=== PATIENT | male | born 1965 | race Caucasian/White ===

== ENCOUNTER 2020-07-03 02:45 | Observation (INO) | payer SELFPAY ==
[2020-07-03] VITALS (16 sets, daily range): BP systolic 108–146; BP diastolic 67–99; PULSE 60–114; RESP 17–18; TEMP 36.7–36.9; O2SAT 93–98; BMI 27.6
[2020-07-03 03:13] LABS: Basophils # 0.1 10^3/uL (0.0-0.1); Basophils % 0.4 %; Eosinophils # 0.3 10^3/uL (0.0-0.8); Eosinophils % 2.1 %; Hematocrit 43.8 % (42.0-52.0); Hemoglobin 14.7 g/dL (11.7-16.6); Lymphocytes # 2.2 10^3/uL (0.8-4.8); Lymphocytes % 18.5 %; Mean Corpuscular HGB Conc 33.6 g/dL (30.0-36.0); Mean Corpuscular Hemoglobin 29.3 pg (28.0-34.0); Mean Corpuscular Volume 87.3 fL (80-94); Mean Platelet Volume 10.6 fL (7.4-10.4); Monocytes # 0.8 10^3/uL (0.2-0.9); Monocytes % 6.5 %; Neutrophils # 8.54 10^3/uL (1.8-7.7); Neutrophils % 71.7 %; Nucleated Red Blood Cells % 0 %; Platelet Count 340 10^3/cmm (130-400); Red Blood Count 5.02 10^6/uL (4.1-5.3); Red Cell Distribution Width 12.5 % (12.1-15.1); White Blood Count 11.9 10^3/uL (4.0-10.0)
--- NOTE | 2020-07-03 03:16 | CTR_ITS ---
PROCEDURE INFORMATION: Exam: CT Abdomen And Pelvis With Contrast Exam date and time: 07/03/2020 3:20 AM Age: 54 years old Clinical indication: Abdominal pain; Prior surgery; Surgery type: Hernia; Patient HX: Epigastric pain TECHNIQUE: Imaging protocol: Computed tomography of the abdomen and pelvis with contrast. Radiation optimization: All CT scans at this facility use at least one of these dose optimization techniques: automated exposure control; mA and/or kV adjustment per patient size (includes targeted exams where dose is matched to clinical indication); or iterative reconstruction. Contrast material: OMNI 300; Contrast volume: 95 ml; Contrast route: INTRAVENOUS (IV); COMPARISON: No relevant prior studies available. RADIATION DOSE METRICS: Total DLP (mGy-cm): 1693.31 FINDINGS: Liver: Indeterminate 15 mm and 11mm lesions in the right hepatic lobe on axial images 13 and 35, respectively. Gallbladder and bile ducts: Radiolucent stones noted in the gallbladder hyperdense material layering probably representing sludge. There is mild wall thickening/pericholecystic fluid. Pancreas: No ductal dilation. Spleen: No splenomegaly. Adrenal glands: Normal. No mass. Kidneys and ureters: No hydronephrosis. Stomach and bowel: Colonic diverticulosis without findings of diverticulitis. No bowel obstruction. Appendix: No evidence of appendicitis. Intraperitoneal space: No free air. No significant fluid collection. Vasculature: No abdominal aortic aneurysm. Lymph nodes: No enlarged lymph nodes. Urinary bladder: Unremarkable as visualized. Reproductive: Unremarkable as visualized. Bones/joints: Chronic right rib fracture. No acute fracture. Soft tissues: Previous left inguinal hernia repair. CT/CT abdomen pelvis w con* [id number] IMPRESSION: 1. Findings suggestive of acute cholecystitis in the appropriate clinical context. 2. Indeterminate 15 mm and 11mm lesions in the right hepatic lobe. Further evaluation with non-emergent liver MRI is recommended. Radiation Dose CTDIVOL = (mGy): DLP = 1693.31 (mGy-cm)
[2020-07-03 03:23] LABS: Alanine Aminotransferase 14 U/L (0-41); Albumin Level 3.7 g/dL (3.5-5.2); Alkaline Phosphatase 91 IU/L (40-130); Aspartate Amino Transferase 20 U/L (0-40); Blood Urea Nitrogen 13 mg/dL (6-20); Calcium 8.9 mg/dL (8.5-10.5); Carbon Dioxide 28 mmol/L (22-29); Chloride 102 mmol/L (98-107); Globulin 3.1 g/dL (1.3-4.6); Glomerular Filtration Rate 88.6 mL/min (90-130); Glucose 112 mg/dL (65-115); Lipase 40 U/L (13-60); Osmolality Calculated 285 mOsm/kg (285-295); Sodium 137 mmol/L (136-145); Total Bilirubin 0.2 mg/dL (0.15-1.2); Total Protein 6.8 g/dL (6.6-8.7)
[2020-07-03] MEDS: morphine 4 mg/mL SDV 1 mL IVP (03:26)
[2020-07-03] MEDS: sodium chloride 0.9% 1,000 ML 999 ML IV (03:26)
[2020-07-03] MEDS: ondansetron 2 mg/ML SDV 2 mL 4 MG IVP (03:26)
[2020-07-03] MEDS: iohexol 300 mg/mL 100 mL Btl IV (03:35)
[2020-07-03] MEDS: lidocaine 2% viscous 15 ML, aluminum-mag hydrox-simethicon 30 ML, sucralfate oral liq 1 GM PO (03:44)
--- NOTE | 2020-07-03 03:57 | ED_ITS ---
Documented by User: Steve High MD 07/03/20 04:01 HPI - Abdominal Pain General: Chief Complaint: Abdominal Pain Stated Complaint: abd pain Time Seen by Provider: 07/03/20 03:05 Source: patient History of Present Illness: HPI narrative: Patient is a 54-year-old male seen for epigastric abdominal pain he describes it as 8 of 10, burning, worse with food and somewhat better with rest. He states the pain is oddly worse when he lays on his left side and better when he sits upright. He admits to smoking throughout his adult life and drinks alcohol occasionally. He states that he came to the emergency department tonight because the pain has gotten significantly worse over the last several days any started to vomit. He has never had any surgeries on his abdomen nor been diagnosed acute cholecystitis, pancreatitis, gastritis, or appendicitis. He states that he has seen some dark stool throughout the last several days but he does not pay close attention to it. He denies chest pain, shortness of breath, fever, and has no other acute complaints. Review of Systems General: Reports: 10 or more systems reviewed and unremarkable except in HPI and below Physical Exam Const: COMMON NORMALS: no acute distress, patient oriented x3 and alert HENMT: COMMON NORMALS: normocephalic and atraumatic HEAD & SCALP: normoc ephalic and atraumatic Eye: COMMON NORMALS: Equal, round and reactive pupils present, EOMs intact bilaterally and no scleral icterus PUPIL: Yes Equal, round and reactive pupils present Resp: COMMON NORMALS: normal respiratory effort and No retractions Cardio: COMMON NORMALS: regular rate, regular rhythm and No murmurs present (Cardio) RATE: regular rate RHYTHM: regular rhythm GI: COMMON NORMALS: Normal to inspection, nondistended, normoactive bowel sounds present, Soft to palpation and No hepatosplenomegaly present INSPECTION: Yes normal to inspection and No abdominal distension AUS CULTATION: Yes normoactive bowel sounds PALPATION: Yes Soft to palpation, Yes Tenderness to palpation present (GI) (epigastrum), Yes Guarding due to palpation present (GI) (epigastrum) and Yes No hepatosplenomegaly present OTHER: Abdomen is acutely tender with palpation of the epigastrium. It is otherwise soft and nontender elsewhere. Neuro: COMMON NORMALS: patient oriented x3 SENSORIUM/ORIENTATION: Yes alert Skin: COMMON NORMALS: no rashes or lesions noted GENERAL SKIN EXAM: no rashes or lesions noted Course Vital Signs: Vital signs: Vital Signs Pulse Rate 68 07/03/20 07:00 Respiratory Rate 18 07/03/20 07:00 Blood Pressure 128/85 07/03/20 07:00 Pulse Oximetry 97 07/03/20 07:00 MDM - Abdominal Pain Lab Data: Labs: Lab Results 07/03/20 07/03/20 07/03/20 Range/Units 02:54 02:54 04:15 WBC 11.9 H (4.0-10.0) 10^3/ uL RBC 5.02 (4.1-5.3) 10^6/u L Hgb 14.7 (11.7-16.6) g/dL Hct 43.8 (42.0-52.0) % MCV 87.3 (80-94) fL MCH 29.3 (28.0-34.0) pg MCHC 33.6 (30.0-36.0) g/dL RDW 12.5 (12.1-15.1) % Plt Count 340 (130-400) 10^3/c mm MPV 10.6 H (7.4-10.4) fL Neut % (Auto) 71.7 % Lymph % (Auto) 18.5 % Allen % (Auto) 6.5 % Eos % (Auto) 2.1 % Baso % (Auto) 0.4 % Neut # (Auto) 8.54 H (1.8-7.7) 10^3/u L Lymph # (Auto) 2.2 (0.8-4.8) 10^3/u L Allen # (Auto) 0.8 (0.2-0.9) 10^3/u L Eos # (Auto) 0.3 (0.0-0.8) 10^3/u L Baso # (Auto) 0.1 (0.0-0.1) 10^3/u L Nucleated RBC % (a uto) 0 % Nucleated RBCs # 0.0 /100WBC Sodium 137 (136-145) mmol/L Potassium 4.0 (3.5-5.1) mmol/L Chloride 102 (98-107) mmol/L Carbon Dioxide 28 (22-29) mmol/L Anion Gap 11.0 (5-19) BUN 13 (6-20) mg/dL Creatinine 0.9 (0.7-1.2) mg/dL GFR Calculation 88.6 L (90-130) mL/min Glucose 112 (65-115) mg/dL Calculated Osmolal ity 285 (285-295) mOsm/k g Calcium 8.9 (8.5-10.5) mg/dL Total Bilirubin 0.2 (0.15-1.2) mg/dL AST 20 (0-40) U/L ALT 14 (0-41) U/L Alkaline Phosphata se 91 (40-130) IU/L Total Protein 6.8 (6.6-8.7) g/dL Albumin 3.7 (3.5-5.2) g/dL Globulin 3.1 (1.3-4.6) g/dL Lipase 40 (13-60) U/L Urine Color Yellow (Yellow) Urine Appearance Clear (CLEAR) Urine pH 6.5 (5-7) Ur Specific Gravit y 1.020 (1.005-1.030) Urine Protein Neg (Negative) Urine Glucose (UA) Norm (Normal) Urine Ketones Negative (Negative) Urine Blood 2+ H (Negative) Urine Nitrate Negative (Negative) Urine Bilirubin Neg (Negative) Urine Urobilinogen Norm (Negative) mg/dL Ur Leukocyte Sharri ase Trace H (Negative) Urine RBC 5-10 H (0-2) /hpf Urine WBC 0-4 H (0-5) /hpf Ur Squamous Epith Cells 0-4 H (0-5) /hpf Amorphous Sediment Not Reportable Urine Bacteria None (NONE) /hpf Discharge Plan Discharge Patient Disposition: Admitted As Inpatient Clinical Impression: Acute cholecystitis Condition: Stable Sign Out Sign Out Data: Patient Sign Out occurred on 07/03/20 at 06:30. Patient's care was discussed, and care was transferred from to Gilson Jiménez DO. Coding Level of Care Code ED Profiler Hand for Chg Fwd Exam Detailed Documented by User: Gilson Jiménez DO 07/03/20 08:40 HPI - Abdominal Pain General: Chief Complaint: Abdominal Pain Stated Complaint: abd pain Time Seen by Provider: 07/03/20 03:05 Course Vital Signs: Vital signs: Vital Signs Pulse Rate 68 07/03/20 07:00 Respiratory Rate 18 07/03/20 07:00 Blood Pressure 128/85 07/03/20 07:00 Pulse Oximetry 97 07/03/20 07:00 MDM - Abdominal Pain MDM Narrative: Medical decision making narrative: 84-year-old male care assumed from Dr. High at change of shift. He has been having right upper quadrant abdominal pain intermittently for the last couple of months. He had different meats yesterday as well as some potato chips and began having sharply worsening pain. He has acute cholecystitis on imaging his white count is 11.9 with a left shift. He there is no dilation of the common bile duct and there is no elevation of his T bili or LFTs. Discussed with Dr. Chamorro he will admit to his services consult hospitalist for medical management keep n.p.o. start Zosyn. Lab Data: Labs: Lab Results 07/03/20 07/03/20 07/03/20 Range/Units 02:54 02:54 04:15 WBC 11.9 H (4.0-10.0) 10^3/ uL RBC 5.02 (4.1-5.3) 10^6/u L Hgb 14.7 (11.7-16.6) g/dL Hct 43.8 (42.0-52.0) % MCV 87.3 (80-94) fL MCH 29.3 (28.0-34.0) pg MCHC 33.6 (30.0-36.0) g/dL RDW 12.5 (12.1-15.1) % Plt Count 340 (130-400) 10^3/c mm MPV 10.6 H (7.4-10.4) fL Neut % (Auto) 71.7 % Lymph % (Auto) 18.5 % Allen % (Auto) 6.5 % Eos % (Auto) 2.1 % Baso % (Auto) 0.4 % Neut # (Auto) 8.54 H (1.8-7.7) 10^3/u L Lymph # (Auto) 2.2 (0.8-4.8) 10^3/u L Allen # (Auto) 0.8 (0.2-0.9) 10^3/u L Eos # (Auto) 0.3 (0.0-0.8) 10^3/u L Baso # (Auto) 0.1 (0.0-0.1) 10^3/u L Nucleated RBC % (a uto) 0 % Nucleated RBCs # 0.0 /100WBC Sodium 137 (136-145) mmol/L Potassium 4.0 (3.5-5.1) mmol/L Chloride 102 (98-107) mmol/L Carbon Dioxide 28 (22-29) mmol/L Anion Gap 11.0 (5-19) BUN 13 (6-20) mg/dL Creatinine 0.9 (0.7-1.2) mg/dL GFR Calculation 88.6 L (90-130) mL/min Glucose 112 (65-115) mg/dL Calculated Osmolal ity 285 (285-295) mOsm/k g Calcium 8.9 (8.5-10.5) mg/dL Total Bilirubin 0.2 (0.15-1.2) mg/dL AST 20 (0-40) U/L ALT 14 (0-41) U/L Alkaline Phosphata se 91 (40-130) IU/L Total Protein 6.8 (6.6-8.7) g/dL Albumin 3.7 (3.5-5.2) g/dL Globulin 3.1 (1.3-4.6) g/dL Lipase 40 (13-60) U/L Urine Color Yellow (Yellow) Urine Appearance Clear (CLEAR) Urine pH 6.5 (5-7) Ur Specific Gravit y 1.020 (1.005-1.030) Urine Protein Neg (Negative) Urine Glucose (UA) Norm (Normal) Urine Ketones Negative (Negative) Urine Blood 2+ H (Negative) Urine Nitrate Negative (Negative) Urine Bilirubin Neg (Negative) Urine Urobilinogen Norm (Negative) mg/dL Ur Leukocyte Sharri ase Trace H (Negative) Urine RBC 5-10 H (0-2) /hpf Urine WBC 0-4 H (0-5) /hpf Ur Squamous Epith Cells 0-4 H (0-5) /hpf Amorphous Sediment Not Reportable Urine Bacteria None (NONE) /hpf Discharge Plan Discharge Patient Disposition: Admitted As Inpatient Clinical Impression: Acute cholecystitis Condition: Stable Sign Out Sign Out Data: Patient Sign Out occurred on 07/03/20 at 06:30. Patient's care was discussed, and care was transferred from to Gilson Jiménez DO. Coding Level of Care Code ED Profiler Hand for Chg Fwd Exam Detailed
[2020-07-03 04:31] LABS: Blood Urine 2+ (Negative); Glucose Urine UA Norm (Normal); Ketones Urine Negative (Negative); Protein Urine Neg (Negative); Urine Appearance Clear (CLEAR); Urine Color Yellow (Yellow); pH Urine 6.5 (5-7)
--- NOTE | 2020-07-03 04:31 | US_ITS ---
WS: [id number] RIGHT UPPER QUADRANT ULTRASOUND HISTORY: pain, concern on CT COMPARISON: CT 07/03/2020 Liver: 18.8 cm in length. Mildly enlarged liver. Hepatic steatosis. The entire liver is poorly visual ized. The mixed attenuation nodule seen on the CT is not evident by ultrasound. There are several les ions in the liver seen on the CT which are probably hemangiomas based upon their enhancement pattern. These can be followed up by MRI or three-phase hepatic CT. Gallbladder: Mildly contracted gallbladder. Large amount shadowing from the gallbladder fossa. There are numerous stones and sludge within the gallbladder. The wall appears diffusely thickened. Gallblad jennifer wall measures greater than 3 mm. CBD: 0.4 cm Pancreas: Not visualized. Right kidney: 14.0 cm in length. Normal size and echogenicity. No hydronephrosis or mass. Aorta and IVC: Unremarkable abdominal aorta and IVC. No ascites. US/US gall bladder [id number] IMPRESSION: 1. Acute cholecystitis with stones, sludge and wall thickening. No bile duct d ilatation. 2. Mild hepatic steatosis and hepatomegaly. Lesions described by CT are not se en by ultrasound. These are most likely hemangiomas based upon the CT appearanc e. Consider follow-up three-phase hepatic CT or MRI liver.
[2020-07-03 04:32] LABS: Add Urine Microscopic? YES; Bilirubin Urine Neg (Negative); Leukocyte Esterase Urine Trace (Negative); Nitrate Urine Negative (Negative); Urobilinogen Urine Norm (Negative); WBC Urine 0-4 /hpf (0-5)
[2020-07-03 04:33] LABS: Add Urine Culture? No; Squamous Epithelial Cell Urine 0-4 /hpf (0-5)
--- NOTE | 2020-07-03 07:08 | PC.NURSE ---
Received report assumed care. US in room completing exam. No distress note nor any changes.
[2020-07-03] MEDS: piperacillin-tazobactam 3.375 GM in sodium chloride 0.9% (plus) 50 ML IV ×2 (08:59→18:53)
--- NOTE | 2020-07-03 12:14 | PM.CONSULT ---
Providers/Reason For Consult Consulting Physician/Specialty*: Zackary Tariq MD, hospitalist Reason for Consult*: Medical management Primary Care Provider: Jairo Ma History of Present Illness History of Present Illness Vincenzo Serrano is a 54 year old male who came into the ER with right upper gastric pain. The pain has been going on for years but has since been getting worse in the past months, past week he started vomiting this Wednesday. No blood in the emesis or stool was noted. Discomfort worsens with eating. The stool was loose and appeared green. No acholic stools were noted. The pain radiated to his mid back and into the mid abdomen. Did not ask if anything helped make it better or worse. The patient has not had COVID or been exposed to covid. He reports he felt he had a fever 1 day prior to admission and some chills but did not record his temperature. Review of Systems General: Reports: 10 or more systems reviewed and unremarkable except in HPI and below Const: Reports: fever(s) and chills Eyes: Denies: change in vision ENMT: Denies: throat pain Card: Denies: chest pain Resp: Denies: dyspnea GI: Reports: abdominal pain, nausea, vomiting and diarrhea : Reports: flank pain Musc: Reports: back pain Skin/Breast: Denies: rash Neuro: Denies: headache(s) Psych: Reports: depression Endo: Denies: polyuria Aly/Lymph: Denies: easy bruising All/Imm: Denies: urticaria Meds/Allergies Home Medications and Allergies Home Medications Medication Instructions Recorded Confirmed Last Taken Type No Known Home Medications 07/03/20 07/03/20 Unknown History Allergies Allergy/AdvReac Type Severity Reaction Status Date / Time No Known Allergies Allergy Verified 07/03/20 07:10 PFSH Acute PFSH: Medical History (Updated 07/03/20 @ 12:28 by Blane Tariq MD) Hypertension Osteoarthritis Tobacco dependency Surgical History (Updated 07/03/20 @ 12:28 by Blane Tariq MD) History of ankle surgery History of hernia repair Family History (Updated 07/03/20 @ 12:28 by Blane Tariq MD) Other Diabetes Social History (Updated 07/03/20 @ 12:26 by Blane Tariq MD) Smoking and tobacco status: current every day smoker Alcohol intake: former Substance/Drug Use: former Vitals/I&O/Wt Last Vital Signs Pulse 73 07/03/20 10:03 Resp 17 07/03/20 10:03 BP 132/70 07/03/20 10:03 Pulse Ox 96 07/03/20 10:03 07/02/20 07/03/20 07/03/20 22:59 06:59 14:59 Intake Total 1000 / 1000 50 / 50 Balance 1000 / 1000 50 / 50 Weight last 48 hrs Weight 97.522 kg Physical Exam Narrative: EXAM NARRATIVE: General exam: Patient was alert and oriented to the surroundings. In obvious pain during movement and breathing HEENT: Atraumatic and normocephalic. Pupils equally round. Oropharynx clear. Neck is supple no lymphadenopathy or thyromegaly Cardiovascular regular rate and rhythm without murmur Lungs coarse congestion heard bilaterally with a few expiratory wheezes Abdomen is distant tenderness in the right upper quadrant area. No rebound. Bowel sounds are heard GI is deferred Extremities no cyanosis clubbing or edema, cap refill brisk Skin: Multiple insect bite/tick bites lower extremities Neurologic: No obvious focal deficits. Data Other Data: Other data: LFTs all within normal limits Lipase 40, normal Urinalysis with 5-10 reds, 0-[address] demonstrates findings suggestive of acute cholecystitis, and an indeterminate lesions in the right hepatic lobe, consider nonemergent MRI in the future Gallbladder ultrasound demonstrated acute cholecystitis [place] with stones sludge and wall thickening without bile duct dilation. Fatty liver is also noted. Liver lesions appear to be most likely hemangiomas but three-phase hepatic CT or MRI could be done. A&P Assessment and plan (1) Acute cholecystitis: Zosyn initiated in the emergency department. We will continue this Surgery is primary. They are anticipating surgery tomorrow morning Continue n.p.o. status Hydration, maintenance fluids as patient is n.p.o. Morphine for pain control. Zofran for nausea. Status: Acute (2) Hypertension: Continue to monitor. He has not been taking any blood pressure medications and blood pressure is normal currently. Status: Acute (3) Tobacco dependency: Counseled on abstinence Nicotine patch Albuterol as needed Status: Acute Additional A&P Information Indeterminate lesions noted in the liver. Could consider outpatient MRI. Likely hemangiomas per ultrasound. Full code Heparin for DVT prophylaxis Consult Attestations Medical Necessity Statement: As per primary Time Spent in Patient Care: Greater than 35 minutes Coding Level of Care Code Acute Butcher Head for Steve Fwd Diagnoses Acute cholecystitis K81.0 Hypertension I10 Tobacco dependency F17.200
--- NOTE | 2020-07-03 13:30 | PM.CONSULT ---
Providers/Reason For Consult Consulting Physician/Specialty*: Mikey Diana MD Reason for Consult*: Acute cholecystitis Requesting Physician: Dr. Jiménez Primary Care Provider: Jairo Ma History of Present Illness History of Present Illness Chief Complaint: My side hurts History of present illness: Mr. Vincenzo Serrano is a pleasant 54 year old male presents with history of right-sided abdominal pain being dull and sharp since over the weekend. Patient reports that he had some nausea and vomiting and he does not recall any specific fatty dyspepsia but has been going on his abdominal pain for the past couple of months or so. Denies history of jaundice or nonintentional weight loss. As the pain got worse he decided to come to the ER for further evaluation and potential intervention. CT scan of the abdomen pelvis was done that showed 1. Findings suggestive of acute cholecystitis in the appropriate clinical context. 2. Indeterminate 15 mm and 11mm lesions in the right hepatic lobe. Further evaluation with non-emergent liver MRI is recommended Ultrasound of the liver and gallbladder was done and showed 1. Acute cholecystitis with stones, sludge and wall thickening. No bile duct dilatation. 2. Mild hepatic steatosis and hepatomegaly. Lesions described by CT are not seen by ultrasound. These are most likely hemangiomas based upon the CT appearance. Consider follow-up three-phase hepatic CT or MRI liver. Review of Systems General: Reports: 10 or more systems reviewed and unremarkable except in HPI and below Meds/Allergies Home Medications and Allergies Home Medications Medication Instructions Recorded Confirmed Last Taken Type No Known Home Medications 07/03/20 07/03/20 Unknown History Allergies Allergy/AdvReac Type Severity Reaction Status Date / Time No Known Allergies Allergy Verified 07/03/20 07:10 PFSH Acute PFSH: Medical History (Updated 07/03/20 @ 12:28 by Blane Tariq MD) Hypertension Osteoarthritis Tobacco dependency Surgical History (Updated 07/03/20 @ 12:28 by Blane Tariq MD) History of ankle surgery History of hernia repair Family History (Updated 07/03/20 @ 12:28 by Blane Tariq MD) Other Diabetes Social History (Updated 07/03/20 @ 12:26 by Blane Tariq MD) Smoking and tobacco status: current every day smoker Alcohol intake: former Substance/Drug Use: former Vitals/I&O/Wt Last Vital Signs Pulse 60 07/03/20 13:12 Resp 18 07/03/20 13:12 BP 130/78 07/03/20 13:12 Pulse Ox 96 07/03/20 13:12 07/02/20 07/03/20 07/03/20 22:59 06:59 14:59 Intake Total 1000 / 1000 50 / 50 Balance 1000 / 1000 50 / 50 Weight last 48 hrs Weight 215 lb Physical Exam Narrative: EXAM NARRATIVE: Patient is conscious alert oriented X3 BMI 28 Head and neck examination PERRLA no masses no cervical lymphadenopathy no jaundice Cardiac examination audible S1-S2 no murmurs no gallops no arrhythmias Chest is clear bilateral,abscence of Rhonchi or wheezes,no surgical emphysema Abdomen nontender except at the right upper quadrant and slightly towards the epigastrium nondistended soft no organomegaly guarding or rigidity/no signs of peritonitis Extremities no cyanosis no clubbing no edema A&P Assessment and plan (1) Acute cholecystitis: Plan of care; After thorough history physical examination and reviewing the chart and images with my personal intrepreatation.I counseled the patient for laparoscopic cholecystectomy possible open, indications risks including but not limited injury to the common bile duct and/or other viscera,that may require potential future surgical interventions including but not limited to ERCP and or laparatomy that may include Hepatobiliary surgery.Benefits and alternatives all discussed with the patient, also Patient understands his potential other option which conservative management the form of antibiotics and interval cholecystectomy,Patient needs to think about it and talk to his girlfriend. All questions have been answered and all concerns have been addressed to patient's satisfaction. Rationale was carefully and clearly discussed with the patient. For now patient can have clear liquid diet and n.p.o. after midnight Status: Acute Consult Attestations Medical Necessity Statement: Continue observation status for IV antibiotics Time Spent in Patient Care: (>than 50% of time spent in counselling and/or direct pt care on unit). Coding Level of Care Code Acute Scientific Software Engineer for Steve Alvarez Diagnoses Acute cholecystitis K81.0
[2020-07-03] MEDS: heparin 5,000 unit/mL INJ 1 mL 5000 UNIT SUBCUT (18:52)
[2020-07-03] MEDS: nicotine 21 mg Patch 1 PATCH TRANSDERMA (18:52)
[2020-07-03] MEDS: D5-NS 0.45% + KCL 20 mEq 20 MEQ/1,000 ML BAG 100 MEQ IV (18:52)
[2020-07-04] VITALS (20 sets, daily range): BP systolic 117–163; BP diastolic 67–103; PULSE 68–96; RESP 15–22; TEMP 36.1–37.3; O2SAT 93–98
[2020-07-04] MEDS: piperacillin-tazobactam 3.375 GM in sodium chloride 0.9% (plus) 50 ML IV ×2 (01:54→17:34)
[2020-07-04] MEDS: heparin 5,000 unit/mL INJ 1 mL 5000 UNIT SUBCUT (04:13)
[2020-07-04] MEDS: D5-NS 0.45% + KCL 20 mEq 20 MEQ/1,000 ML BAG 100 MEQ IV (04:13)
--- NOTE | 2020-07-04 06:11 | PM.PN ---
Subjective Subjective: Interval history: Patient overall feels little better AND he is interested to proceed with surgery Medications: Reviewed: Yes Vitals/I&O/Wt Last Vital Signs Temp 97.9 F 07/04/20 03:49 Pulse 70 07/04/20 03:49 Resp 17 07/04/20 03:49 BP 128/87 07/04/20 03:49 Pulse Ox 94 07/04/20 03:49 07/03/20 07/03/20 07/04/20 14:59 22:59 06:59 Intake Total 50 / 50 50 / 100 935 / 1035 Output Total 400 / 400 300 / 700 Balance 50 / 50 -350 / -300 635 / 335 Weight last 48 hrs Weight 215 lb Physical Exam Narrative: EXAM NARRATIVE: Patient is conscious alert oriented X3 BMI 28 Head and neck examination PERRLA no masses no cervical lymphadenopathy no jaundice Abdomen nontender except at the right upper quadrant on deep palpation nondistended soft no organomegaly guarding or rigidity/no signs of peritonitis Data : 07/03/20 02:54 07/03/20 02:54 A&P Assessment and plan (1) Acute cholecystitis: Plan of care; After thorough history physical examination and reviewing the chart and images with my personal intrepreatation.I counseled the patient for laparoscopic cholecystectomy possible open, indications risks including but not limited injury to the common bile duct and/or other viscera,that may require potential future surgical interventions including but not limited to ERCP and or laparatomy that may include Hepatobiliary surgery.Benefits and alternatives all discussed with the patient, and patient did agree to proceed accordingly. All questions have been answered and all concerns have been addressed to patient's satisfaction. Rationale was carefully and clearly discussed with the patient.Appropriate informed consent have been reviewed and signed. Status: Acute Attestations Medical Necessity Statement*: We will continue observation status for perioperative care Time Spent in Patient Care: (>than 50% of time spent in counselling and/or direct pt care on unit). Coding Level of Care Code Acute Business Administration Program Chair for Steve Alvarez Diagnoses Acute cholecystitis K81.0
[2020-07-04 06:42] LABS: Basophils # 0.1 10^3/uL (0.0-0.1); Basophils % 0.6 %; Eosinophils # 0.3 10^3/uL (0.0-0.8); Eosinophils % 2.5 %; Hematocrit 43.7 % (42.0-52.0); Hemoglobin 14.5 g/dL (11.7-16.6); Lymphocytes # 2.2 10^3/uL (0.8-4.8); Mean Corpuscular HGB Conc 33.2 g/dL (30.0-36.0); Mean Corpuscular Hemoglobin 28.8 pg (28.0-34.0); Mean Corpuscular Volume 86.9 fL (80-94); Mean Platelet Volume 9.9 fL (7.4-10.4); Monocytes # 0.8 10^3/uL (0.2-0.9); Monocytes % 7.9 %; Neutrophils # 6.69 10^3/uL (1.8-7.7); Neutrophils % 66.2 %; Nucleated Red Blood Cells % 0 %; Platelet Count 319 10^3/cmm (130-400); Red Blood Count 5.03 10^6/uL (4.1-5.3); Red Cell Distribution Width 12.3 % (12.1-15.1); White Blood Count 10.1 10^3/uL (4.0-10.0)
[2020-07-04 07:06] LABS: Alanine Aminotransferase 18 U/L (0-41); Albumin Level 3.6 g/dL (3.5-5.2); Alkaline Phosphatase 103 IU/L (40-130); Anion Gap 11.3 (5-19); Aspartate Amino Transferase 22 U/L (0-40); Blood Urea Nitrogen 8 mg/dL (6-20); Calcium 8.7 mg/dL (8.5-10.5); Carbon Dioxide 26 mmol/L (22-29); Chloride 106 mmol/L (98-107); Globulin 2.8 g/dL (1.3-4.6); Glomerular Filtration Rate 78.5 mL/min (90-130); Glucose 125 mg/dL (65-115); Osmolality Calculated 288 mOsm/kg (285-295); Potassium 4.3 mmol/L (3.5-5.1); Sodium 139 mmol/L (136-145); Total Bilirubin 0.3 mg/dL (0.15-1.2); Total Protein 6.4 g/dL (6.6-8.7)
--- NOTE | 2020-07-04 10:34 | PC.NURSE ---
Patient to surgery at this time.
[2020-07-04] MEDS: sodium chloride 0.9% 1,000 ML 30 ML IV (10:53)
--- NOTE | 2020-07-04 10:56 | SUR.PHASEI ---
PT TO [facility] 6 PT AWAKE ALERT DENIES PAIN, PT READY FOR ANESTHESIA, HANDOFF TO JOSIAH ROCHE RN.
--- NOTE | 2020-07-04 10:56 | PC.CHAP ---
Pastoral Care Encounter/Spiritual Assessment Type of Contact [] Declined patent examiner visit [] Patient/Family/Request visit [] Outpatient visit [] Follow-up visit [] Physician referral [] Code/Alert [x] Routine visit [] Staff referral [] Actively dying [] Patient sleeping [] Family support [] [] Out of room [] Palliative care [] [x] Receiving care in room [] Pre-surgical visit [] Trauma [] Long length of stay [] ICU visit [] Other: Relational/Emotional Strength [x] Patient feels connected with others/family/visitors/staff [] Distress [] Loneliness/isolation [] Abandonment Spirituality of Patient [] Person of Mayra [] Attends Baptism of their Mayra [] Believes in Prayer [] Reads Bible or Nondenominational materials [] There are Spiritual issues to be addressed Panel Sewer Interventions [] Prayer [] Active listening [] Non-anxious presence [] Spiritual/emotional support [] Crisis/trauma care [] Spiritual counseling [] Bereavement support [] Provided bereavement packet [] Provided Bible/devotional materials [] Provided toy/stuffed animal, coloring book to patient or family member [] Provided Communion [] Anointing/Shepherd [] Salvation [] Completed spiritual assessment [] Other: Impact on Illness or Injury [] Angry [] Fearful [x] Anxious [] Often cries [] Exhaustion [] Unable to work [] Unable to attend samaritan [] Unable to walk/stand [] Unable to read [] Unable to drive [] Unable to eat/drink [] Unable to sleep [] Unable to be with family [] Patient intubated [] Other: Summary waiting nto go into surgery for galblder today, has a good attitude wants to go home soon after recovery Time spent with patient 10 mins
--- NOTE | 2020-07-04 11:08 | P.ANESASSM_ITS ---
Pre-Anesthetic Assessment Pre-Anesthetic Assessment: Height/Weight: Height 1.88 m Weight 97.522 kg Temp Pulse Resp BP Pulse Ox 99.2 F 80 18 131/78 93 07/04/20 10:41 07/04/20 10:41 07/04/20 10:41 07/04/20 10:41 07/04/20 10:41 Preop Diagnosis: Cholecystitis Proposed Procedure: Operation Date: 07/04/20 10:30 Proposed Procedures p Laparoscopic Cholecystectomy(Not Applicable) - Mikey Diana MD Familial anesthetic complications: None Was Beta Brain taken within 24 hours: N/A Was Clonidine taken within 24 hours: N/A Last intake: > 8 hrs Social: Social History: Tobacco and No alcohol Exam: Pre-Anes Outpt Exam: alert, oriented x 3, clear to auscultation bilaterally and regular rate & rhythm Airway: Cervical ROM: WNL MP: 3 Dentition: Other (missing) CV/HEM: CV/HEM: HTN Anesthetic Plan: ASA status: 2 Anesthesia: General Risk of > 500 ml blood loss (7ml/kg in children): No Meds/Allergies Current Medications: Current Medications Generic Name Dose Route Start Last Admin Trade Name Freq PRN Reason Stop Dose Admin Heparin Sodium (Be ef Lung) 5,000 unit 07/03/20 17:04 07/04/20 04:13 Heparin 5,000 Un it/Ml Inj 1 Ml SUBCUT 5,000 unit Q12H JEANETTE Administration Potassium Chloride /Dextrose/Sod Cl 20 meq in 1,000 m ls @ 100 mls/hr 07/03/20 17:04 07/04/20 04:13 D5-Ns 0.45% + Guille l 20 Meq IV 100 mls/hr .Q10H JEANETTE Administration Piperacillin Sod/T azobactam 50 mls @ 12.5 mls /hr 07/03/20 17:30 07/04/20 05:55 Sod 3.375 gm/ So dium Chloride IV Infused Q8H JEANETTE Infusion Protocol Sodium Chloride 1,000 mls @ 30 ml s/hr 07/04/20 11:00 07/04/20 10:53 Sodium Chloride 0.9% IV 07/05/20 10:59 30 mls/hr .Q24H JEANETTE Administration PFSH Anesthesia PFSH: Medical History (Updated 07/03/20 @ 12:28 by Blane Tariq MD) Hypertension Osteoarthritis Tobacco dependency Surgical History (Updated 07/03/20 @ 12:28 by Blane Tariq MD) History of ankle surgery History of hernia repair Family History (Updated 07/03/20 @ 12:28 by Blane Tariq MD) Other Diabetes Social History (Updated 07/03/20 @ 12:26 by Blane Tariq MD) Smoking and tobacco status: current every day smoker Alcohol intake: former Substance/Drug Use: former Data Anesthesia CBC & Chem 7: 07/04/20 06:34 07/04/20 06:34 Other Labs: Laboratory Results - last 48 hr 07/03/20 07/03/20 07/03/20 02:54 02:54 04:15 WBC 11.9 H RBC 5.02 Hgb 14.7 Hct 43.8 MCV 87.3 MCH 29.3 MCHC 33.6 RDW 12.5 Plt Count 340 MPV 10.6 H Neut % (Auto) 71.7 Lymph % (Auto) 18.5 [place] % (Auto) 6.5 Eos % (Auto) 2.1 Baso % (Auto) 0.4 Neut # (Auto) 8.54 H Lymph # (Auto) 2.2 [place] # (Auto) 0.8 Eos # (Auto) 0.3 Baso # (Auto) 0.1 Nucleated RBC % (auto) 0 Nucleated RBCs # 0.0 Sodium 137 Potassium 4.0 Chloride 102 Carbon Dioxide 28 Anion Gap 11.0 BUN 13 Creatinine 0.9 GFR Calculation 88.6 L Glucose 112 Calculated Osmolality 285 Calcium 8.9 Total Bilirubin 0.2 AST 20 ALT 14 Alkaline Phosphatase 91 Total Protein 6.8 Albumin 3.7 Globulin 3.1 Lipase 40 Urine Color Yellow Urine Appearance Clear Urine pH 6.5 Ur Specific [place] 1.020 Urine Protein Neg Urine Glucose (UA) Norm Urine Ketones Negative Urine Blood 2+ H Urine Nitrate Negative Urine Bilirubin Neg Urine Urobilinogen Norm Ur Leukocyte Esterase Trace H Urine RBC 5-10 H Urine WBC 0-4 H Ur Squamous Epith Cells 0-4 H Amorphous Sediment Not Reportable Urine Bacteria None 07/04/20 07/04/20 06:34 06:34 WBC 10.1 H RBC 5.03 Hgb 14.5 Hct 43.7 MCV 86.9 MCH 28.8 MCHC 33.2 RDW 12.3 Plt Count 319 MPV 9.9 Neut % (Auto) 66.2 Lymph % (Auto) 22.0 [place] % (Auto) 7.9 Eos % (Auto) 2.5 Baso % (Auto) 0.6 Neut # (Auto) 6.69 Lymph # (Auto) 2.2 [place] # (Auto) 0.8 Eos # (Auto) 0.3 Baso # (Auto) 0.1 Nucleated RBC % (auto) 0 Nucleated RBCs # 0.0 Sodium 139 Potassium 4.3 Chloride 106 Carbon Dioxide 26 Anion Gap 11.3 BUN 8 Creatinine 1.0 GFR Calculation 78.5 L Glucose 125 H Calculated Osmolality 288 Calcium 8.7 Total Bilirubin 0.3 AST 22 ALT 18 Alkaline Phosphatase 103 Total Protein 6.4 L Albumin 3.6 Globulin 2.8 Lipase Urine Color Urine Appearance Urine pH Ur Specific [place] Urine Protein Urine Glucose (UA) Urine Ketones Urine Blood Urine Nitrate Urine Bilirubin Urine Urobilinogen Ur Leukocyte Esterase Urine RBC Urine WBC Ur Squamous Epith Cells Amorphous Sediment Urine Bacteria Cardiac Studies: No Data to Display
--- NOTE | 2020-07-04 11:42 | PM.PN ---
Subjective Subjective: Interval history: Vincenzo reports that he is doing okay. His right upper quadrant pain is better. Medications: Reviewed: Yes Vitals/I&O/Wt Last Vital Signs Temp 99.2 F 07/04/20 10:41 Pulse 80 07/04/20 10:41 Resp 18 07/04/20 10:41 BP 131/78 07/04/20 10:41 Pulse Ox 93 07/04/20 10:41 07/03/20 07/04/20 07/04/20 22:59 06:59 14:59 Intake Total 50 / 100 985 / 1085 Output Total 400 / 400 300 / 700 850 / 850 Balance -350 / -300 685 / 385 -850 / -850 Weight last 48 hrs Weight 97.522 kg Physical Exam Narrative: EXAM NARRATIVE: General exam: No significant distress today Neck is supple no lymphadenopathy or thyromegaly Cardiovascular regular rate and rhythm without murmur Lungs a few expiratory wheezes are heard bilaterally Abdomen is distant tenderness in the right upper quadrant area. No rebound. Bowel sounds are heard Extremities no cyanosis clubbing or edema, cap refill brisk Data : 07/04/20 06:34 07/04/20 06:34 A&P Assessment and plan (1) Acute cholecystitis: Continue Zosyn Probable surgery today Continue hydration Morphine for pain control. Zofran for nausea. Liver enzymes reviewed and all normal. Status: Acute (2) Hypertension: Continue to monitor. Blood pressure remains stable Status: Acute (3) Tobacco dependency: Counseled on abstinence Nicotine patch Albuterol as needed Status: Acute Additional A&P Information Indeterminate lesions noted in the liver. Could consider outpatient MRI. Likely hemangiomas per ultrasound. 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
[2020-07-04] MEDS: lidocaine 2% INJ 20 mL INJECTION (12:31)
--- NOTE | 2020-07-04 12:58 | P.OP_ITS ---
Operative Report Date of procedure: July 04, 2020 Pre-op Diagnosis: Cholecystitis Post-op diagnosis: same Post-op Diagnosis: Acute calculus cholecystitis Post-op Findings: Incidental finding of right lobe hemangioma 2 x 2 cm just lateral to the dome of the gallbladder Procedure Done: Laparoscopic cholecystectomy Specimens removed/disposition: Gallbladder and contents Surgeon: Mikey Diana Channel Marketing Coordinator: Surgical Marilyn Odonnell and Ritika Circulating nurses Mary Mott and Rox Simpson Anesthesia: General (GETA [employer]AL AIR MARSHAL Cindy) Estimated blood loss (mL): 15 Condition: stable Disposition: observation Brief History: Acute calculus cholecystitis. Full H&P and informed consent per chart Procedure: Patient was identified in the holding area and taken back to the operative suite, placed in supine position intubated by anesthesia . Time-out was done verifying the patient's name/date of /planned procedure and destination after the procedure, all were in agreement. SCDs confirmed to be functioning, preoperative antibiotics administered per protocol, and beta cris protocol was confirmed. Patient was appropriately secured to the table, footboard was applied to the OR table, before prep and drape anesthesia was asked to tilt the table back and forth to make sure that the patient is appropriately secured and she was. Prep and drape of the abdomen was done under the usual sterile technique, followed by that supraumbilical skin incision,skin incision was done by a 15 blade knife, and stay sutures were applied to the fascia and Sainz trocar technique was used to enter the abdominal without injuring any abdominal visce ra, started by low flow gas insufflation followed by a high flow, started with a 10 mm laparoscope and under direct vision there was no evidence of any injuries, the scope then switched to a 30? ,10 millimeter scope and under direct visualization 5 millimeter trocar was inserted in the epigastric region followed by two 5 mm trocars were inserted in the right upper quadrant that was done after injection of local lidocaine 2% at all incision sites. Gallbladder showed acute calculus cholecystitis with extensive edema &with adhesions And was noticed to have a hemangioma-like mass 2 x 2 cm just lateral to the gallbladder fossa, biopsy was avoided to prevent herald bleeding. Patient was then positioned in the head up and tilted to the left Ratcheted forceps were introduced into the lateral most 5mm port and was applied unto the fundus of the gallbladder cephalad and using Bullet forceps the infundibulum of the gallbladder was retracted laterally. Using [place] forceps then L-hook cautery to dissect the peritoneum overlying the Calot's triangle whihc was then opened medially and laterally until the cystic duct and the cystic artery were skeletonized. Dissection was carried along the body of the gallbladder and after ensuring critical view of safety was identfied. Cystic duct and cystic artery where seen connected to the gallbladder. Clips were applied on the cystic duct towards the common bile duct 1 towards the gallbladder then divided is in sharp scissors, 2 clips were then applied onto the cystic artery and 1 towards the gallbladder and divided by sharp scissors. Additional clips were applied for traversing vessels. Dissection was then carried along of the gallbladder from the gallbladder fossa using cautery as well as sharp dissection with heat energy. The gallbladder then was dissected out from the gallbladder fossa totally , cholecystectomy was then achieved and was placed in an Endo Catch bag and then retrieved from the Sainz trocar site under direct visualization using a 5 mm 30? scope through the epigastric trocar, specimen was then passed to the circulating nurse to go for permanent pathology,irrigation and hemostasis was done to the gallbladder fossa after hemostasis was secured, final survey laparoscopy was done that showed no injuries. Suction irrigation was obtained The supraumbilical fascial defect was then closed using interrupted #1 PDS sutures using a fascial closure device ;Alexei Rosales under direct visualization Gas was allowed to deflate,Trocars were then taken out under direct vision there was no evidence of bleeding Specimen was passed to the circulating nurse for permanent pathology. No drains were placed and the supraumbilical incision as well as all trocar sites were closed by by 4-0 Monocryl to approximate the skin edges of the supraumbilical incision, dressing was applied in the form of Dermabond and the patient patient got extubated and was taken to recovery area in a stable condition. Count of sponges, needles and instruments were completed at the end of the procedure I was present for the whole entire procedure.
[2020-07-04] MEDS: fentaNYL 50 mcg/mL INJ 2mL IVP ×2 (13:22→13:23)
--- NOTE | 2020-07-04 13:31 | SUR.PHASEI ---
1323- ANESTHESIA GIVES PERMISSION TO ADMINISTER FENTANYL 50MCG AND 50MCG DOSE TOGETHER
[2020-07-04] MEDS: HYDROmorphone 1 mg/mL INJ 1 mL 0.5 MG IVP (13:41)
--- NOTE | 2020-07-04 13:42 | SUR.PHASEI ---
1340- PERMISSION TO ADMINISTER DILAUDID DOSE FOR PAIN INTERVENTION
--- NOTE | 2020-07-04 13:48 | SUR.PHASEI ---
1348- ANESTHESIA AWARE OF LAST MEDICATION ADMINISTRATION
--- NOTE | 2020-07-04 13:53 | P.SS_ITS ---
Short Stay Summary Providers Date of Admit/Discharge: 07/04/20 Attending Provider: Mikey Diana MD Primary Care Provider: Jairo Ma Chief Complaint: abd pain HPI History of Present Illness Vincenzo Serrano is a 54 year old male [place] with worsening abdominal pain was found to have acute calculus cholecystitis. Was admitted on my service for observation status. Plan to proceed with laparoscopic cholecystectomy. Hospitalist was consulted for patient's pulmonary status. Review of Systems General: Reports: 10 or more systems reviewed and unremarkable except in HPI and below Home Meds/Allergies Home Medications and Allergies Home Medications Medication Instructions Recorded Confirmed Type No Known Home Medications 07/03/20 07/03/20 History Allergies Allergy/AdvReac Type Severity Reaction Status Date / Time No Known Allergies Allergy Verified 07/04/20 18:15 PFSH Acute PFSH: Medical History Hypertension Osteoarthritis Tobacco dependency Surgical History History of ankle surgery History of hernia repair Family History Other Diabetes Social History Smoking and tobacco status: current every day smoker Alcohol intake: former Substance/Drug Use: former Vitals/I&O/Wt Last Vital Signs Temp 96.9 F L 07/04/20 13:18 Pulse 82 07/04/20 13:45 Resp 15 07/04/20 13:45 BP 146/77 07/04/20 13:45 Pulse Ox 94 07/04/20 13:45 07/03/20 07/04/20 07/04/20 22:59 06:59 14:59 Intake Total 50 / 100 985 / 1085 50 / 50 Output Total 400 / 400 300 / 700 855 / 855 Balance -350 / -300 685 / 385 -805 / -805 Weight last 48 hrs Weight 215 lb Physical Exam Narrative: EXAM NARRATIVE: General exam: Patient is conscious alert oriented x3 Neck is supple no lymphadenopathy or thyromegaly Abdominal examination incisions are clean dry and intact otherwise soft nontender and no signs of peritonitis Extremities no cyanosis clubbing or edema Hospital Course Hospital Course This is a pleasant 54 years old gentleman presents with acute calculus cholecystitis undergone uneventful laparoscopic cholecystectomy and overall continues to do well with stable vital signs and pain under control. We will plan to discharge home today. Discharge Summary 54 years old gentleman with acute calculus cholecystitis undergone laparoscopic cholecystectomy. Patient noted to have stable vital signs and good urine output. Tolerated p.o. intake and met the appropriate and safe criteria for discharge. Plan to send the patient home on oral pain medications and education was given to him about smoking cessation. Return to surgery office in 2 weeks. SSS Data Data Completed and Pending: Completed Studies During Hospitalization Category Date Time Status CT abdomen pelvis w con* [id number] Urge nt Cat Scan 07/03/20 03:16 Completed US gall bladder [id number] Urgent Ultrasound 07/03/20 04:31 Completed Pending at discharge Category Date Time Status ES surgery / GI i mages Routine Exams 07/04/20 11:09 Taken Pathology: Surgic al [PTH] Routine Pth 07/04/20 13:22 Ordered Diagnoses at Discharge Discharge Diagnosis (1) Acute cholecystitis: Status: Resolved Permanent problem details: Plan to discharge home today on pain medications (2) Hypertension: Status: Chronic Permanent problem details: Chronic management per PCP (3) Tobacco dependency: Status: Chronic Permanent problem details: Cessation of smoking Discharge Plan Discharge Patient Disposition: Home Condition: Stable Prescriptions: New hydrocodone-acetaminophen 5-325 mg tablet 1 tab PO Q6H PRN (Reason: pain) Qty: 28 RF: 0 No Action No Known Home Medications RF: 0 Discharge Orders: Discharge Order (Routine); Ordered 07/04/20 Ordered By: Mikey Diana Referrals: Mikey Diana MD [Physician] - (Return to surgery office in 2-week) Discharge Diet: Advance as tolerated Discharge Activity: Limit activity as instructed Patient Instructions: Hydrocodone/Acetaminophen (By mouth), How to Stop Smoking (DC), Cholecystitis (DC), Hypertension (DC), Opioid Safety Activity Restrictions/Additional Instructions: 1. Patient can shower after 48 hours from surgery 2. Remove Dermabond 7 to 10 days after surgery, if there is a secondary dressing can take down after 48 hours. 3. Up and walking as tolerated 4. Do not lift more than 5 pounds first 2 weeks after surgery and not more than 25 pounds 6 to 8 weeks after surgery. 5. Do not operate heavy machinery or drive while using pain medications. 6.Contact the office or return to the ER for worsening nausea vomiting fevers or chills, or noticing any redness around incision sites or discharge. 7. Smoking cessation Attestations Medical Necessity Statement*: Patient was kept in observation status for perioperative care. Time Spent in Patient Care*: greater than 30 min Time Spent in Smoking Cessation: Time spent discussing smoking cessation with patient: more than 10 minutes Specific Discharge Activities: Specific discharge activities: educating patient Status at Discharge: Cognitive status at discharge: cognitively intact , Behavioral status at discharge: cooperative , Functional status at discharge: independent ambulation Overall status at discharge: patient is progressing back to baseline Quality Metrics Clinical Quality Measures: During this hospital stay, did patient experience: None Coding Level of Care Code Acute 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
--- NOTE | 2020-07-04 14:07 | ANE.PACU2 ---
Inpatient post-anesthesia follow up: Airway intact: Yes Vital signs: Temperature 96.9 F Pulse Rate [Monito r] 93 Pulse Rate 82 Respiratory Rate 15 Blood Pressure 146/77 Pulse Oximetry 94 Oxygen Delivery Me thod [ Room Air Current Rate & Del abiel] Oxygen Delivery Me thod Room Air Oxygen Flow Rate Fraction of Inspir ed Oxygen Hydration adequate: Yes Nausea and vomiting: No Pain level: 2 Mental status: Baseline
--- NOTE | 2020-07-04 19:14 | PC.NURSE ---
IV removed intact. Patient tolerated well. Reviewed patient discharge with patient at this time. Patient verbalized understanding of discharge instructions. Patient is A&Ox3. Respirations even an non-labored on room air. Patient wheel chaired to private car.
--- NOTE | 2020-07-05 14:59 | PC.RESP ---
Smoking Cessation information sent to patient.
== END 2020-07-04 18:40 | disposition home or self-care (01) ==
LOC: ER 11:14 → MEDSURG 07-04 06:59
PROVIDERS: Student in an Organized Health Care Education/Training Program; Admitting Provider Surgery; Emergency Provider Family Medicine; PCP Nurse Practitioner Family; Visit Provider Surgery
PROC: 0FT44ZZ Resection of Gallbladder, Percutaneous Endoscopic Approach (ICD-10-PCS; CPT 47562; principal; 2020-07-04 10:30)
DX: K80.10 Calculus of gallbladder with chronic cholecystitis without obstruction (principal); I10 Essential (primary) hypertension; M19.90 Unspecified osteoarthritis, unspecified site; F17.210 Nicotine dependence, cigarettes, uncomplicated; Z82.49 Family history of ischemic heart disease and other diseases of the circulatory system
CPT/HCPCS: 47562; 36415; 74177; 76705; 80053; 81001; 83690; 85025; 88304; 96365; 96366; 96367; 96372; 96375; 99285; G0378; J0690; J1100; J1170; J1644; J2270; J2405; J2543; J2704; J3010; J3490; J7030; Q9967